=== PATIENT | male | born 1965 | race Caucasian/White ===

== ENCOUNTER → 2018-06-13 | Outpatient (CLI) | payer BC | END | disposition home or self-care (01) | LOC: CVU 07:33 | PROVIDERS: ATTEND Internal Medicine Cardiovascular Disease | DX: I51.7 Cardiomegaly (principal); I25.9 Chronic ischemic heart disease, unspecified; Z87.891 Personal history of nicotine dependence | CPT/HCPCS: 78452; 93017; 93306; A9502 ==